=== PATIENT | female | born 1995 | race Two or more races ===

== ENCOUNTER 2016-10-16 02:58 | Emergency (ER) | payer OTHER ==
[2016-10-16] MEDS ORDERED: LORazepam 0.5 MG TABLET PO STA (03:21)
[2016-10-16] MEDS ORDERED: ONDANSETRON ODT 4 MG TABLET TL STA (03:21)
[2016-10-16] MEDS ORDERED: ONDANSETRON ODT 4 MG TABLET ONE (03:31)
[2016-10-16] MEDS ORDERED: LORazepam 0.5 MG TABLET ONE (03:31)
[2016-10-16] MEDS ORDERED: DEXAMETHASONE 10 MG/ML VIAL PO STA (04:12)
[2016-10-16] MEDS ORDERED: ALBUTEROL 8 GM INHALER INH STA (04:12)
[2016-10-16] MEDS ORDERED: DEXAMETHASONE 10 MG/ML VIAL ONE (04:22)
== END 2016-10-16 04:35 | disposition home or self-care (01) ==
DX: J06.9 Acute upper respiratory infection, unspecified (principal); R06.4 Hyperventilation; F41.9 Anxiety disorder, unspecified; J45.909 Unspecified asthma, uncomplicated
CPT/HCPCS: 99283; 99284; A9270; Q0162